=== PATIENT | female | born 2000 | race Caucasian/White ===

== ENCOUNTER 2019-07-22 16:43 | Emergency (ER) | payer MEDICAID, OTHER ==
[~2019-07-22] VITALS: Ht 165.1 cm; Wt 90.9 kg
--- OUTSIDE RECORDS SUMMARY | 2019-07-22 16:49 | XMS REPORT | Continuity of Care Document ---
Demographics Preferred Language Unknown Marital Status Unknown Gnosticism Affiliation Unknown Race Unknown Ethnic Group Unknown Author Organization Unknown Address Unknown Phone Unavailable Allergies There is no data. Medications There is no data. Problems There is no data. Procedures There is no data. Results Test Result Range HBsAg Screen - 04/30/17 01:20 HBsAg Screen Negative Negative Varicella-Zoster V Ab, IgG - 04/30/17 01 :20 Varicella Zoster IgG <135 index Immune > 165 Rubella Antibodies, IgG - 04/30/17 01:20 Rubella Antibodies, IgG 1.25 index Immun e >0.99 RPR, Rfx Qn RPR/Confirm TP - 04/30/17 01 :20 RPR Non Reactive Non Reactive Varicella-Zoster Ab, IgM - 04/30/17 01:2 0 Varicella-Zoster Ab, IgM 1.63 index 0.00 -0.90 AFP, Serum, Open Spina Bifida - 07/15/17 11:55 Results Report Test Results: *Screen Negative* Gest. Age on Collection Date 17.3 weeks Gestat. Age Based On Ultrasound [age] Race Weight 174 lbs Insulin Dep Diabetes No Multiple Gestation No AFP Value 24.3 ng/mL AFP MoM 0.69 OSBR [place] 1 [place] [address] Interpretation Comment Comment: Comment PDF . LIPID PANEL - 11/07/18 12:33 CHOLESTEROL, TOTAL 146 mg/dL <200 HDL CHOLESTEROL 48 mg/dL >50 TRIGLYCERIDES 82 mg/dL <150 LDL-CHOLESTEROL 82 mg/dL (calc) NRG CHOL/HDLC RATIO 3.0 (calc) <5.0 NON HDL CHOLESTEROL 98 mg/dL (calc) <130 CMP - 11/07/18 12:33 GLUCOSE 79 mg/dL 65-99 UREA NITROGEN (BUN) 7 mg/dL 7-25 CREATININE 0.72 mg/dL 0.50-1.10 eGFR NON-AFR. KYRGYZ 121 mL/min/1.73m2 > OR = 60 eGFR 140 mL/min/1.73m2 > OR = 60 BUN/CREATININE RATIO NOT APPLICABLE (calc) 6-22 SODIUM 139 mmol/L 135-146 POTASSIUM 4.3 mmol/L 3.5-5.3 CHLORIDE 106 mmol/L 98-110 CARBON DIOXIDE 24 mmol/L 20-32 CALCIUM 9.1 mg/dL 8.6-10.2 PROTEIN, TOTAL 6.8 g/dL 6.1-8.1 ALBUMIN 4.2 g/dL 3.6-5.1 GLOBULIN 2.6 g/dL (calc) 1.9-3.7 ALBUMIN/GLOBULIN RATIO 1.6 (calc) 1.0-2. 5 BILIRUBIN, TOTAL 0.4 mg/dL 0.2-1.2 ALKALINE PHOSPHATASE 77 U/L 33-115 AST 16 U/L 10-30 ALT 11 U/L 6-29 CBC - 11/07/18 12:33 WHITE BLOOD CELL COUNT 5.3 Thousand/uL 3 .8-10.8 RED BLOOD CELL COUNT 5.07 Million/uL 3.8 0-5.10 HEMOGLOBIN 13.1 g/dL 11.7-15.5 HEMATOCRIT 41.5 % 35.0-45.0 MCV 81.9 fL 80.0-100.0 MCH 25.8 pg 27.0-33.0 MCHC 31.6 g/dL 32.0-36.0 RDW 14.8 % 11.0-15.0 PLATELET COUNT 215 Thousand/uL 140-400 MPV 11.6 fL 7.5-12.5 ABSOLUTE NEUTROPHILS 2735 cells/uL 1500- 7800 ABSOLUTE LYMPHOCYTES 1977 cells/uL 850-3 900 ABSOLUTE MONOCYTES 466 cells/uL 200-950 ABSOLUTE EOSINOPHILS 80 cells/uL 15-500 ABSOLUTE BASOPHILS 42 cells/uL 0-200 NEUTROPHILS 51.6 % NRG LYMPHOCYTES 37.3 % NRG MONOCYTES 8.8 % NRG EOSINOPHILS 1.5 % NRG BASOPHILS 0.8 % NRG THYROID ANALYZER - 11/07/18 12:33 TSH 1.17 mIU/L NRG VITAMIN D, 25-H - 11/07/18 12:33 VITAMIN D,25-OH,TOTAL,IA 21 ng/mL 30-10 0 GC/CHLAMYDIA (SWAB OR URINE)-RAPID - 12/15 13:00 CHLAMYDIA TRACHOMATIS RNA, TMA DETECTED NOT DETECTED NEISSERIA GONORRHOEAE RNA, TMA NOT DETECTED NOT DETECTED COMMENT NRG FSH, Serum - 03/16/19 11:00 FSH 4.9 mIU/mL Estradiol - 03/16/19 11:00 Estradiol 60.6 pg/mL DHEA-Sulfate - 03/16/19 11:00 DHEA-Sulfate 124.6 ug/dL 110.0-431.7 Testosterone, Free/Tot Equilib - 9 11:00 Testosterone, Serum 18 ng/dL 8-48 Testosterone,Free 0.25 ng/dL 0.10-0.85 % Free Testosterone 1.40 % 0.50-2.80 17-OH Progesterone LCMS - 03/16/19 11:00 17-OH Progesterone LCMS 53 ng/dL Prolactin - 03/16/19 11:00 Prolactin 13.7 ng/mL 4.8-23.3 TEST, SERUM (QUAL) - 05/11/19 15:26 HCG, TOTAL, QL POSITIVE See Note: Rubella Antibodies, IgG - 06/06/19 17:39 Rubella Antibodies, IgG 9.07 index Immun e >0.99 RPR, Rfx Qn RPR/Confirm TP - 06/06/19 17 :39 RPR Non Reactive Non Reactive HSV 1 and 2-Spec Ab, IgG w/Rfx - 0 17:39 HSV 1 IgG, Type Spec 40.30 index 0.00-0. 90 HSV 2 IgG, Type Spec <0.91 index 0.00-0. 90 Encounters ACCT No. Visit Date/Time Discharge Status Pt. Type Provider Facility Loc./Unit Complaint [id number] 05/01/2017 15:06:00 Document Registration [id number] 07/10/2019 12:11:18 07/10/2019 23:59: 59 CLS Outpatient Andrew May [id number] 07/04/2019 14:20:04 07/04/2019 23:59: 59 CLS Outpatient Padilla Jones [id number] 06/20/2019 11:51:09 06/20/2019 23:59: 59 CLS Outpatient Padilla Jones [id number] 06/06/2019 15:34:06 06/06/2019 23:59: 59 CLS Outpatient Glenis Mckee [id number] 05/29/2019 11:38:19 05/29/2019 23:59: 59 CLS Outpatient Andrew May [id number] 04/10/2019 11:27:07 04/10/2019 23:59: 59 CLS Outpatient Padilla Jones [id number] 03/16/2019 10:40:09 03/16/2019 23:59: 59 CLS Outpatient Padilla Jones [id number] 02/10/2019 14:54:16 02/10/2019 23:59: 59 CLS Outpatient YadiraAndrew [id number] 12/13/2018 09:18:19 12/13/2018 23:59: 59 CLS Outpatient YadiraAndrew [id number] 08/17/2018 12:01:10 08/17/2018 23:59: 59 CLS Outpatient Glenis Mckee [id number] 05/12/2018 15:59:23 05/12/2018 23:59: 59 CLS Outpatient Valentine Hernándezanne [id number] 01/27/2018 12:00:44 01/27/2018 23:59: 59 CLS Outpatient Valentine Hernándezanne [id number] 12/16/2017 12:27:47 12/16/2017 23:59: 59 CLS Outpatient EdgarValentine sparrowanne [id number] 12/09/2017 11:59:58 12/09/2017 23:59: 59 CLS Outpatient Valentine Hernándezanne [id number] 12/02/2017 09:34:37 12/02/2017 23:59: 59 CLS Outpatient Valentine Hernándezanne [id number] 11/22/2017 11:25:16 11/22/2017 23:59: 59 CLS Outpatient EdgarValentine huddlestonanne [id number] 10/06/2017 14:14:57 10/06/2017 23:59: 59 CLS Outpatient YadiraAndrew [id number] 10/05/2017 12:00:57 10/05/2017 23:59: 59 CLS Outpatient Valentine Hernándezanne [id number] 09/13/2017 11:47:46 09/13/2017 23:59: 59 CLS Outpatient EdgarValentineMira [id number] 08/16/2017 11:23:48 08/16/2017 23:59: 59 CLS Outpatient DaltonValentineMira [id number] 07/15/2017 11:55:35 07/15/2017 23:59: 59 CLS Outpatient DaltonValentineMira [id number] 06/17/2017 11:49:49 06/17/2017 23:59: 59 CLS Outpatient Mira Hernández [id number] 05/20/2017 15:45:59 05/20/2017 23:59: 59 CLS Outpatient Mira Hernández [id number] 04/30/2017 11:11:02 04/30/2017 23:59: 59 CLS Outpatient Glenis Mckee [id number] 04/27/2017 10:39:34 04/27/2017 23:59: 59 CLS Outpatient Andrew May [id number] 04/06/2017 16:16:30 04/06/2017 23:59: 59 CLS Outpatient MayAndrew crespo [id number] 03/09/2017 13:41:26 03/09/2017 23:59: 59 CLS Outpatient Andrew May [id number] 12/24/2016 15:31:25 12/24/2016 23:59: 59 CLS Outpatient Andrew May [id number] 12/19/2016 11:15:59 12/19/2016 23:59: 59 CLS Outpatient Rosalina Navin [id number] 12/16/2016 18:48:20 12/16/2016 23:59: 59 CLS Outpatient Andrew May [id number] 12/11/2016 11:47:30 12/11/2016 23:59: 59 CLS Outpatient Glenis Mckee [id number] 12/07/2016 16:33:35 12/07/2016 23:59: 59 CLS Outpatient Glenis Mckee [id number] 11/12/2016 19:17:22 11/12/2016 23:59: 59 CLS Outpatient Kerry Napoles Mag [id number] 08/13/2016 14:58:12 08/13/2016 23:59: 59 CLS Outpatient Glenis Mckee [id number] 08/05/2016 20:32:09 08/05/2016 23:59: 59 CLS Outpatient Kerry Napoles Mag [id number] 05/16/2016 09:47:23 05/16/2016 23:59: 59 CLS Outpatient Glenis Mckee [id number] 05/08/2016 14:42:58 05/08/2016 23:59: 59 CLS Outpatient Andrew May [id number] 05/05/2016 15:02:49 05/05/2016 23:59: 59 CLS Outpatient MayAndrew crespo [id number] 04/15/2016 18:31:06 04/15/2016 23:59: 59 CLS Outpatient Andrew May [id number] 07/18/2017 06:36:00 Document Registration [id number] 06/08/2019 21:05:00 Document Registration [id number] 05/02/2017 17:05:00 Document Registration [id number] 05/02/2019 11:40:00 05/02/2019 23:59: 59 CLS Outpatient CATIASEK ANDRÉS [id number] 05/11/2019 16:00:00 Document Registration [id number] 02/04/2019 12:40:00 Document Registration [id number] 11/07/2018 11:00:00 Document Registration [id number] 06/08/2019 09:07:00 Document Registration [id number] 03/17/2019 06:06:00 Document Registration [id number] 03/17/2019 06:06:00 Document Registration [id number] 03/17/2019 06:06:00 Document Registration [id number] 03/19/2019 08:06:00 Document Registration [id number] 03/24/2019 17:06:00 Document Registration [id number] 05/02/2017 17:05:00 Document Registration [id number] 06/08/2019 21:05:00 Document Registration [id number] 05/01/2017 08:13:00 Document Registration [id number] 03/17/2019 06:06:00 Document Registration [id number] 05/03/2017 15:06:00 Document Registration
--- OUTSIDE RECORDS SUMMARY | 2019-07-22 16:49 | XMS REPORT | CCD ---
Author Author FABIAN BAKER Organization Unknown Address [address] [place] [address] Care Team Providers Care Computer Network Specialist Name Role Phone LILLY MOCTEZUMA, ABHIJEET Owusu Attphys Allergies Unknown or Not Available. Active Medications Unknown or Not Available. Problems Unknown or Not Available. Procedures Unknown or Not Available. Results Unknown or Not Available. Encounters Encounter Diagnosis Diagnosis Code Start Date Threatened O200 11/24/2016 Function Status Unknown or Not Available. History of Immunizations Immunization Code Date Hep B, adolescent or pediatric 08 varicella 21 11/01/2007 varicella 21 11/14/2010 DTaP-Hib 50 12/09/1999 HPV, quadrivalent 62 12/31/2014 Tdap 115 11/14/2010 Novel [id number] 127 2009 HPV9 165 03/05/2015 HPV9 165 10/30/2015 Social History Smoking Status Code Start Date End Date Never smoker [id number] Vital Signs Unknown or Not Available. Function Status Unknown or Not Available. Goals Unknown or Not Available. ASSESSMENTS Unknown or Not Available. Health Concerns Section Unknown or Not Available.
[2019-07-22 16:52] VITALS: BP 114/81
--- NOTE | 2019-07-22 17:31 | ED GU-Female ---
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 Pt reports to be 14 wks with LMP 04/14/19. Pt reports she was released from admission at [facility] on 07/21/19 after being evaluated for vaginal bleeding. Pt reports onset of bleeding to be 1130 on 07/20/19 and has continued to experience vaginal bleeding since. Pt reports "bright, red" bleeding has slowed since onset. Pt reports intermittent lower abd cramping began on this day. . Pt denies fever, chills, cough, or SOA. A&OX4. Nursing Sepsis Screen: No Definite Risk Source: patient Exam Limitations: no limitations History of Present Illness Date Seen by Provider: Jul 22, 2019 Time Seen by Provider: 17:52 Initial Comments History as documented by nursing staff above was discussed with patient and confirmed. Patient's vaginal bleeding has decreased in intensity since being discharged from the hospital. She still has some intermittent cramping. She reports a pelvic exam, bedside ultrasound by the ER physician, blood work, and urinalysis were all performed at [facility]. 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 Gilmore, since the bleeding started. heart tones obtained by nursing staff were in the 160s. Allergies and Home Medications Patient Home Medication List Home Medication List Reviewed: Yes Review of Systems Review of Systems Constitutional: no symptoms reported EENTM: no symptoms reported Respiratory: no symptoms reported Cardiovascular: no symptoms reported Gastrointestinal: see HPI Genitourinary: see HPI : Yes LMP: Apr 14, 2019 Musculoskeletal: no symptoms reported Skin: no symptoms reported Psychiatric/Neurological: No Symptoms Reported Endocrine: No Symptoms Reported Hematologic/Lymphatic: No Symptoms Reported Past Enwcwcc-Duqkji-Vlyemt Hx Patient Social History Alcohol Use: Denies Use Recreational Drug Use: No Smoking Status: Never a Smoker 2nd Hand Smoke Exposure: No Recent Foreign Travel: No Contact w/Someone Who Travel: No Recent Infectious Disease Expo: No Recent Hopitalizations: No (Denies medical hx. ) Seasonal Allergies Seasonal Allergies: No Past Medical History Surgeries: No Respiratory: No Cardiac: No Neurological: No Hx : 2 Hx Para: 1 Hx Total # of Abortions (Sp): 0 Genitourinary: No Gastrointestinal: No Musculoskeletal: No Endocrine: No HEENT: No Cancer: No Psychosocial: No Integumentary: No Physical Exam Vital Signs Vital Signs - First Documented 07/22/19 16:52 Temp 37.1 Pulse 90 Resp 18 B/P (MAP) 114/81 (92) Pulse Ox 98 O2 Delivery Room Air Capillary Refill : Less Than 3 Seconds Height, Weight, BMI Height: '" Weight: lbs. oz. 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, no motor/sensory deficits, alert, normal mood/affect, oriented x 3 Skin: normal color, warm/dry Progress/Results/Core Measures Suspected Sepsis Recent Fever Within 48 Hours: No Infection Criteria Present: None New/Unexplained Altered Menta: No Sepsis Screen: No Definite Risk SIRS Temperature: Pulse: 90 Respiratory Rate: 18 Blood Pressure 114 /81 Mean: 92 Results/Orders Vital Signs/I&O 07/22/19 16:52 Temp 37.1 Pulse 90 Resp 18 B/P (MAP) 114/81 (92) Pulse Ox 98 O2 Delivery Room Air Capillary Refill : Less Than 3 Seconds Blood Pressure Mean: 92 Progress Note : Time: 17:56 Progress Note Possible causes of vaginal bleeding discussed with the patient. The anticipated course of workup and need for an official ultrasound was also discussed. Official ultrasound cannot be provided at this facility on the weekend. I did offer repeating some of the workup but explained this was likely going to be redundant with what was obtained at [facility]. Since her symptoms are improving, she elects to simply follow up with her evp business development on Wednesday and discuss obtaining an official ultrasound. Departure Impression Primary Impression: Vaginal bleeding in Disposition: 01 HOME, SELF-CARE Condition: Stable Departure-Patient Inst. Decision time for Depature: 17:30 Referrals: MESERET GILMORE MD (PCP/Family) Primary Care Physician Patient Instructions: Threatened Miscarriage Add. Discharge Instructions: Drink plenty of clear liquids to stay well-hydrated. Avoid strenuous activity, intercourse, or anything else vaginally until cleared by a physician. Contact your primary evp business development first thing on Wednesday morning to discuss necessity of an ultrasound. Feel free to call the emergency room or return to care if symptoms worsen or if you develop new symptoms such as fever, escalating pain, etc. All discharge instructions reviewed with patient and/or family. Voiced understanding. DOMINGO SALVADOR MD Jul 22, 2019 17:31
== END 2019-07-22 17:34 | disposition home or self-care (01) ==
LOC: ER 16:45
DX: O20.9 Hemorrhage in early pregnancy, unspecified (principal); Z3A.14 14 weeks gestation of pregnancy

== ENCOUNTER 2021-03-25 05:42 | Outpatient (CLI) | payer MEDICAID ==
[~2021-03-25] VITALS: Ht 167.7 cm; Wt 91.0 kg
[2021-03-26] MEDS ORDERED: PROG200C14 VG (10:56)
[2021-03-26] MEDS ORDERED: ACET500P24 PO (10:56)
== END 2021-03-26 11:27 | disposition home or self-care (01) ==
LOC: PREOP 05:42
PROVIDERS: ATTEND Obstetrics & Gynecology
DX: Z01.818 Encounter for other preprocedural examination (principal)

== ENCOUNTER 2021-04-01 07:50 | Day surgery (SDC) | payer MEDICAID ==
[~2021-04-01] VITALS: Ht 167.7 cm; Wt 91.0 kg
[2021-04-01] VITALS (10 sets, daily range): BP systolic 90–113; BP diastolic 56–72
[~2021-04-01 07:50] MED LIST: ACET500P24 PO; PROG200C14 VG
[2021-04-01] MEDS ORDERED: ceFAZolin 2 GM IV Premixed 50 ML IV ONE (08:15)
[2021-04-01] MEDS: LACTATED RINGERS 1,000 ML IV PRN ×2 (08:21→09:36)
--- NOTE | 2021-04-01 08:56 | History & Physical-Surgical ---
HPO-Surgical History of Present Illness Chief Complaint: Cervical incompetence Diagnosis/Surgical Indication: INCOMPETENT CERVIX Procedure: CERVICAL CERCLAGE Date of Surgery: Apr 01, 2021 Allergies and Home Medications Allergies Coded Allergies: No Known Drug Allergies (Unverified , 03/26/21) Patient Home Medication List Home Medication List Reviewed: Yes Acetaminophen (Tylenol Extra Strength) 500 Mg Powd.pack, 500 MG PO PRN, (Reported) Entered as Reported by: JOSE ROBERTO GERBER on 03/26/21 1056 Progesterone (Prometrium) 200 Mg Cap, 200 MG VG DAILY, (Reported) Entered as Reported by: JOSE ROBERTO GERBER on 03/26/21 1056 Past Srxulro-Qsgjvm-Szzhkv Hx Patient Social History Number of Children: 1 Number of living children: 1 Employed/Student: employed Smoking Status: Never a Smoker 2nd Hand Smoke Exposure: Yes Recent Hopitalizations: No Social History e cigarettes Have you traveled recently?: No Immunizations Up To Date Tetanus Booster (TDap): Unknown Seasonal Allergies Seasonal Allergies: No Surgeries No Respiratory No Cardiovascular No Neurological Yes (HX OF MIGRAINES) Headaches /Migraines Reproductive System : Yes Expected Date of Delivery: Sep 28, 2021 Hx : 3 Hx Para: 1 Hx Total # of Abortions (Spona: 1 Hx Reproductive Disorders: Yes (cervical incompetence) Genitourinary No Gastrointestinal Yes Hemorrhoids Musculoskeletal No Endocrine History of Endocrine Disorders: No HEENT History of HEENT Disorders: No Cancer No Psychosocial History of Psychiatric Problem: Yes (DX "ANGER ISSUES") Behavioral Health Disorders: Anxiety, PTSD, Depression Integumentary History of Skin or Integumenta: No Family Medical History Significant Family History: No Pertinent Family Hx Exam Vital Signs Capillary Refill : Respiratory: Clear to Auscultation Cardiovascular: Regular Rate Assessment/Plan Assessment and Plan 14 week gestation History of cervical incompetence Plan - cervical cerclage under spinal anesthesia Risk of bleeding, injury to vaginal, bladder, cervix Risk of infection risk of delivery and contractions Proper consents have been obtained Will use prophylactic SCDs Admission Diagnosis Admission Status: Other (Same Day Surgery) ISADORA MEJIA DO Apr 01, 2021 08:55
[2021-04-01 09:01] LABS: BASOPHILS % (AUTO) 0 % (0-10); EOSINOPHILS # (AUTO) 0.1 10^3/uL (0.0-0.3); EOSINOPHILS % (AUTO) 1 % (0-10); HEMATOCRIT 34 % (35-52); HEMOGLOBIN 11.4 g/dL (11.5-16.0); LYMPHOCYTES # (AUTO) 1.5 10^3/uL (1.0-4.0); LYMPHOCYTES % (AUTO) 19 % (12-44); MEAN CORPUSCULAR HEMOGLOBIN 29 pg (25-34); MEAN CORPUSCULAR HGB CONC 34 g/dL (32-36); MEAN CORPUSCULAR VOLUME 84 fL (80-99); MEAN PLATELET VOLUME 11.6 fL (9.0-12.2); MONOCYTES # (AUTO) 0.7 10^3/uL (0.0-1.0); MONOCYTES % (AUTO) 8 % (0-12); NEUTROPHILS # (AUTO) 5.6 10^3/uL (1.8-7.8); NEUTROPHILS % (AUTO) 70 % (42-75); PLATELET COUNT 161 10^3/uL (130-400); WHITE BLOOD COUNT 7.9 10^3/uL (4.3-11.0)
[2021-04-01] MEDS ORDERED: fentaNYL INJ 100 MCG/2 ML AMP ONE (09:21)
--- NOTE | 2021-04-01 10:19 | Operative Report ---
Operative Report Date of Procedure/Surgery Apr 01, 2021 Surgeon (s) ISADORA MEJIA DO Fish Hatchery Laborer (s): doreen Pearson, MS III Post-Operative Diagnosis cervical incompetence Procedure Performed Cervical cerclage Description of Procedure Anesthesia Type: Spinal Estimated blood loss (mL): none Specimen(s) collected/removed none Description of the Procedure With informed consent, the patient was taken to the operating room where spinal anesthesia was found to be adequate. She was then prepped and draped in the usual sterile fashion in the dorsolithotomy position. A Newman catheter was placed in the bladder. A speculum was placed in the vagina and the cervix was noted to be closed and appeared approximately 4 cm in length. I then placed a pursestring stitch of 0 Ethibond was then placed at the level of the internal os, but not extending through the full thickness of the cervix. This was then tied at approximately 12:30-1 o'clock. There was minimal bleeding. The speculum was removed from the vagina. The patient was now taken to the recovery room in a stable condition. Findings of the Procedure cervical length approximately 4 cm, not dilated FHT 160s prior to procedure and after procedure Allergies and Home Medications Allergies Coded Allergies: No Known Drug Allergies (Unverified , 03/26/21) Patient Home Medication List Home Medication List Reviewed: Yes Acetaminophen (Tylenol Extra Strength) 500 Mg Powd.pack, 500 MG PO PRN, (Reported) Entered as Reported by: JOSE ROBERTO GERBER on 03/26/21 1056 Last Action: Reviewed Progesterone (Prometrium) 200 Mg Cap, 200 MG VG DAILY, (Reported) Entered as Reported by: JOSE ROBERTO GERBER on 03/26/21 1056 Last Action: Reviewed ISADORA MEJIA DO Apr 01, 2021 10:19
--- NOTE | 2021-04-01 10:41 | Discharge Inst-Women's Service ---
Discharge Inst-Women's Serv Depart Medication/Instructions New, Converted or Re-Newed RX: Other (ok to use acetaminophen for pain/cramping) Instructions expect light bleeding, ,spotting for a few days cramping would also be normal for a few days Tylenol/acetaminophen is ok to take as needed Restart PV progesterone tomorrow Final Diagnosis incompetent cervix Problems Reviewed?: Yes Consults/Follow Up Additional Follow Up: Yes (as scheduled) Activity Activity: Activity as Tolerated Driving Instructions: No Driving for 24 Hours NO SMOKING: NO SMOKING Nothing Inside Vagina: No Douching, No Martha Diet Discharge Diet: No Restrictions Symptoms to Report to : Bleeding Excessive, Pain Increased, Fever Over 101 Degrees F, Vaginal Bleeding Increase, Vaginal Discharge Foul For Any Problems or Questions: Contact Your Physician Skin/Wound Care Bathing Instructions: ISADORA Foster DO Apr 01, 2021 10:40
[2021-04-01] MEDS ORDERED: ACETAMINOPHEN 500 MG TAB (TYLENOL) PO PRN (10:45)
--- NOTE | 2021-04-01 10:50 | Anesthesia-Regional Post-Op ---
Regional Patient Condition Mental Status: Alert, Oriented x3 Circulation: Same as Pre-Op Headache: Absent Sensation: Full Recovery Motor Block: Absent Post Op Complications Complications None Follow Up Care/Instructions Patient Instructions None needed. Anesthesia/Patient Condition Patient is doing well, no complaints, stable vital signs, no apparent adverse anesthesia problems. No complications reported per nursing. ANASTASIA HAYES CRNA Apr 01, 2021 10:50
== END 2021-04-01 13:20 | disposition home or self-care (01) ==
LOC: SDC 07:50
PROVIDERS: ATTEND Obstetrics & Gynecology
DX: O26.891 Other specified pregnancy related conditions, first trimester (principal); N88.3 Incompetence of cervix uteri; Z3A.12 12 weeks gestation of pregnancy
CPT/HCPCS: 36415; 85025; 87081

== ENCOUNTER → 2021-05-16 | Outpatient (CLI) | payer MEDICAID ==
--- NOTE | 2021-05-16 16:27 | Diagnostic Imaging Report ---
INDICATION: History of cervical incompetence with cerclage. Screening during normal . TECHNIQUE: Multiple real-time grayscale images were obtained over the gravid uterus. COMPARISON: None. FINDINGS: Presence of a single viable intrauterine currently in a transverse orientation, head to the maternal right. Placenta anterior and without previa. Normal amount of amniotic fluid. Cervical length at 4.7 cm. The placenta tip distance to the internal os is approximately 7 cm. The visualized anatomical structures including the kidneys, bladder, stomach, intracranial structures, three-vessel cord and its insertion site appear unremarkable. It is noted that portions of the cardiac structures including cardiac outflow tracts and spine are not adequately assessed owing to position on current assessment. Biometrical measurements are as follows: Biparietal 4.64 cm, age 20 weeks 1 days. Head circumference 18.24 cm, age 20 weeks 5 days. Abdominal circumference 16.16 cm, age 21 weeks 2 days. Femur length 3.49 cm, age 21 weeks 1 days. Sonographic estimate age: 20 weeks 6 days. Sonographic estimated date of delivery: 09/27/2021. Estimated Weight: 395 gm (+/- 58 gm). LMP percentile: 64%. heart rate: 156 beats per minute. number: 1 of 1. IMPRESSION: 1. Single viable intrauterine currently in transverse orientation. 2. Sonographic estimated age is 20 weeks 6 days for an estimated date of delivery 09/27/2021. 3. Visualized anatomical structures appear unremarkable. However, it is noted in particular that the cardiac structures, cardiac outflow track as well as portions of the spine are not able to be well assessed owing to current position/orientation. Consideration for short-term follow-up imaging would be recommended. Dictated by: Dictated on workstation # [id number]
== END ==
LOC: RAD 11:44
PROVIDERS: ATTEND Obstetrics & Gynecology
DX: Z34.92 Encounter for supervision of normal pregnancy, unspecified, second trimester (principal); Z3A.20 20 weeks gestation of pregnancy
CPT/HCPCS: 76805

== ENCOUNTER → 2021-06-20 | Outpatient (CLI) | payer MEDICAID ==
--- NOTE | 2021-06-20 15:28 | Diagnostic Imaging Report ---
INDICATION: Routine care. COMPARISON: 05/16/2021. TECHNIQUE: Multiple Real-time grayscale images were obtained over the gravid uterus. FINDINGS: There is a single live intrauterine gestation in cephalic presentation. The profile is seen. The right and left ventricular outflow tracts are seen. The spine is suboptimally visualized due to the lie. The cervix is obscured by the cephalic presentation. The transvaginal exam demonstrates the cervix measuring 4.4 cm with no funneling or endocervical fluid. The heart rate measures 161 BPM. The placenta is anterior without evidence of previa. The four-chamber heart is suboptimally visualized. IMPRESSION: 1. Single live intrauterine gestation in cephalic presentation. 2. The ventricular outflow tracts appear normal. The four-chamber heart and the upper and lower spine are again suboptimally evaluated due to the lie. 3. Normal-appearing cervix. Dictated by: Dictated on workstation # [id number]
== END ==
LOC: RAD 12:00
PROVIDERS: ATTEND Obstetrics & Gynecology
DX: Z34.02 Encounter for supervision of normal first pregnancy, second trimester (principal)
CPT/HCPCS: 76816